=== PATIENT | female | born 1970 | race African-American/Black ===

== ENCOUNTER 2016-12-22 21:31 | Emergency (ER) | payer OTHER ==
[~2016-12-22] VITALS: Ht 180.3 cm; Wt 129.7 kg
[~2016-12-22 21:31] MED LIST: ASPI-630 PO; CYCL10TA2 PO; HYDR-971 PO; HYDR12.53 PO; IBUP-1060 PO
[2016-12-22 22:40] VITALS: BP 133/74
[2016-12-22] MEDS ORDERED: PRED20TA PO (23:43)
--- NOTE | 2016-12-22 23:43 | PHYS DOC ---
Past Medical History Past Medical History: Hypertension Additional Past Medical Histor: chronic back and knee pain Past Surgical History: Tubal ligation Additional Past Surgical Histo: Carpal Tunnel Alcohol Use: Occasionally Drug Use: None Adult General Chief Complaint Chief Complaint: ITCHING HPI HPI Patient is a 46 year old female presents to the emergency department with a history of rash on and off since August. Patient had been seen by her primary care provider in August and was provided with hydralazine. Patient state she has been taking this medication without relief to the rash. Patient also states she injured her left shoulder hitting in on the corner of the microwave some time ago. She has been seen by Dr Gann and was placed into PT. Patient continues to state she is having increase pain. Review of Systems Review of Systems Constitutional: Denies fever or chills [] Eyes: Denies change in visual acuity, redness, or eye pain [] HENT: Denies nasal congestion or sore throat [] Respiratory: Denies cough or shortness of breath [] Cardiovascular: No additional information not addressed in HPI [] GI: Denies abdominal pain, nausea, vomiting, bloody stools or diarrhea [] : Denies dysuria or hematuria [] Musculoskeletal: Denies back pain. Left shoulder Integument: rash denies skin lesions [] Neurologic: Denies headache, focal weakness or sensory changes [] Endocrine: Denies polyuria or polydipsia [] Allergies Allergies Allergies Coded Allergies Type Severity Reaction Last Updated Verified Penicillins Allergy Unknown 08/14/13 Yes buprenorphine Allergy Unknown 08/14/13 Yes codeine Allergy Unknown 08/14/13 Yes Physical Exam Physical Exam Constitutional: Well developed, well nourished, no acute distress, non-toxic appearance. [] HENT: Normocephalic, atraumatic, bilateral external ears normal, oropharynx moist, no oral exudates, nose normal. [] Eyes: PERRLA, EOMI, conjunctiva normal, no discharge. [] Neck: Normal range of motion, no tenderness, supple, no stridor. [] Cardiovascular:Heart rate regular rhythm, no murmur [] Lungs & Thorax: Bilateral breath sounds clear to auscultation [] Skin: Warm, dry, no erythema Patient with red large rash noted to the back. Back: No tenderness Extremities: Left upper clavicle/chest tenderness, no cyanosis, no clubbing, ROM intact, no edema. Patient with equal pilot manager noted bilaterally, equal strength noted bilaterally. Neurologic: Alert and oriented X 3, normal motor function, normal sensory function, no focal deficits noted. [] Psychologic: Affect normal, judgement normal, mood normal. [] Current Patient Data Vital Signs Vital Signs Date Time Temp Pulse Resp B/P (MAP) Pulse Ox O2 Delivery O2 Flow Rate FiO2 12/22/16 22:40 98.1 77 20 100 Room Air 98.1 EKG EKG [] Radiology/Procedures Radiology/Procedures [] Course & Med Decision Making Course & Med Decision Making Pertinent Labs and Imaging studies reviewed. (See chart for details) Patient's x-rays were negative per Dr. Santiago. Patient will be sent home on prednisone with recommendations to continue her home medications in which she state she has meloxicam. Patient was encouraged to follow-up with Dr. Lima in regards to further evaluation of her shoulder and muscle pain and discomfort. Patient was also encouraged to follow-up with her primary care physician in regards to the rash. Patient will be discharged home in stable condition signs and symptoms to return back to emergency department as been provided. All questions and concerns been answered at patient's bedside. [] Dragon Disclaimer Dragon Disclaimer This electronic medical record was generated, in whole or in part, using a voice recognition dictation system. Departure Departure Impression: Primary Impression: Rash Additional Impression: Muscle strain Disposition: 01 HOME, SELF-CARE Condition: STABLE Referrals: NORRIS MOORE (PCP) MADDIE GANN MD Patient Instructions: Muscle Strain, [id number], Rash, [id number] Additional Instructions: Activity as tolerated Medication as prescribed' Continue with your home medications for pain Followup with primary care provider for the rash in 5-[address] Gann in 5-7 days Return to emergency department as needed for signs and symptoms that become worse. Scripts Prednisone (PREDNISONE) 20 Mg Tablet 40 MG PO DAILY for 7 Days, #14 TAB Prov: ADA MODI APRN 12/22/16 Problem Qualifiers ADA MODI APRN Dec 22, 2016 23:43
--- NOTE | 2016-12-23 07:13 | RAD ---
Left shoulder, 3 views, 12/23/2016: History: Pain, injury No fracture or dislocation is identified. The visualized soft tissues are unremarkable. IMPRESSION: No significant abnormality is detected.
== END 2016-12-23 00:26 | disposition home or self-care (01) ==
LOC: ER 21:31
DX: S46.912A Strain of unspecified muscle, fascia and tendon at shoulder and upper arm level, left arm, initial encounter (principal); R21 Rash and other nonspecific skin eruption; I10 Essential (primary) hypertension; G89.29 Other chronic pain; Z88.8 Allergy status to other drugs, medicaments and biological substances; Z88.5 Allergy status to narcotic agent; Z88.0 Allergy status to penicillin; W22.8XXA Striking against or struck by other objects, initial encounter; Y93.89 Activity, other specified; Y92.89 Other specified places as the place of occurrence of the external cause; Y99.8 Other external cause status
CPT/HCPCS: 73030; 99284

== ENCOUNTER → 2017-04-11 | Outpatient (CLI) | payer OTHER | END | disposition home or self-care (01) | LOC: KCIC 09:37 | DX: M25.512 Pain in left shoulder (principal) | CPT/HCPCS: 71046 ==

== ENCOUNTER → 2017-06-16 | Outpatient (CLI) | payer OTHER | END | disposition home or self-care (01) | LOC: KCIC MRI 14:59 | DX: M47.892 Other spondylosis, cervical region (principal); M75.122 Complete rotator cuff tear or rupture of left shoulder, not specified as traumatic; M25.412 Effusion, left shoulder; M75.102 Unspecified rotator cuff tear or rupture of left shoulder, not specified as traumatic | CPT/HCPCS: 72141; 73221 ==